=== PATIENT | female | born 1960 | race Caucasian/White ===

== ENCOUNTER → 2017-02-23 | Outpatient (CLI) | payer MEDICAID | LOC: FIMAGING 10:55 | PROVIDERS: ATTEND Internal Medicine Hematology & Oncology | DX: Z12.31 Encounter for screening mammogram for malignant neoplasm of breast (principal); Z85.3 Personal history of malignant neoplasm of breast; Z90.11 Acquired absence of right breast and nipple | CPT/HCPCS: G0202-52 ==

== ENCOUNTER → 2018-03-01 | Outpatient (CLI) | payer MEDICAID | LOC: FIMAGING 10:10 | PROVIDERS: ATTEND Internal Medicine Hematology & Oncology | DX: Z12.31 Encounter for screening mammogram for malignant neoplasm of breast (principal); Z85.3 Personal history of malignant neoplasm of breast; Z90.11 Acquired absence of right breast and nipple ==

== ENCOUNTER → 2018-03-11 | Outpatient (CLI) | payer MEDICAID | LOC: FIMAGING 14:15 | PROVIDERS: ATTEND Nurse Practitioner | DX: R92.8 Other abnormal and inconclusive findings on diagnostic imaging of breast (principal) ==

== ENCOUNTER 2018-03-14 08:09 | Emergency (ER) | payer MEDICAID ==
[2018-03-14] MEDS ORDERED: MECLIZINE HCL 25 MG TAB PO ONE (08:39)
--- NOTE | 2018-03-14 08:41 | EDPHY ---
H & P Stated Complaint: PT. states awoke this am with the "spins",dizzy. Denies CP,SOB , Time Seen by Provider: 03/14/18 08:29 HPI/ROS: CHIEF COMPLAINT: Vertigo HISTORY OF PRESENT ILLNESS: Patient is a 57-year-old female who has felt an intense spinning sensation since she got out of bed this morning. This has never happened to her before. She does not have any focal weakness or numbness. It tends to settle down and she lies still. It is worsened by movement. She states that she feels dizzy when she tries to walk. She has not vomited. No chest pain or shortness of breath. REVIEW OF SYSTEMS: Constitutional: denies: chills, fever, recent illness, recent injury EENTM: denies: blurred vision, double vision, nose congestion Respiratory: denies: cough, shortness of breath Cardiac: denies: chest pain, irregular heart rate, lightheadedness, palpitations Gastrointestinal/Abdominal: denies: abdominal pain, diarrhea, nausea, vomiting, blood streaked stools Genitourinary: denies: dysuria, frequency, hematuria, pain Musculoskeletal: denies: joint pain, muscle pain Skin: denies: lesions, rash, jaundice, bruising Neurological: See HPI denies: headache, numbness, paresthesia, tingling, weakness Hematologic/Lymphatic: denies: blood clots, easy bleeding, easy bruising Immunologic/allergic: denies: HIV/AIDS, transplant EXAM: GENERAL: Well-appearing, well-nourished and in no acute distress. HEAD: Atraumatic, normocephalic. EYES: Mild nystagmus with fast component to the right, Pupils equal round and reactive to light, extraocular movements intact, sclera anicteric, conjunctiva are normal. ENT: TMs normal, nares patent, oropharynx clear without exudates. Moist mucous membranes. NECK: Normal range of motion, supple without lymphadenopathy or JVD. LUNGS: Breath sounds clear to auscultation bilaterally and equal. No wheezes rales or rhonchi. HEART: Regular rate and rhythm without murmurs, rubs or gallops. ABDOMEN: Soft, nontender, normoactive bowel sounds. No guarding, no rebound. No masses appreciated. BACK: No CVA tenderness, no spinal tenderness, step-offs or deformities EXTREMITIES: Normal range of motion, no pitting or edema. No clubbing or cyanosis. NEUROLOGICAL: Cranial nerves II through XII grossly intact. Normal speech, normal gait. 5/5 strength, normal movement in all extremities, normal sensation , normal cerebellar exam, NIH score 0. PSYCH: Normal mood, normal affect. SKIN: Warm, dry, normal turgor, no visible rashes or lesions. Source: Patient Exam Limitations: No limitations - Personal History Current Tetanus Diphtheria and Acellular Pertussis (TDAP): Unsure Tetanus Vaccine Date: UNSURE IF WITHIN 10 Y - Medical/Surgical History Hx Asthma: No Hx Chronic Respiratory Disease: No Hx Diabetes: No Hx Cardiac Disease: No Hx Renal Disease: No Hx Cirrhosis: No Hx Alcoholism: No Hx HIV/AIDS: No Hx Splenectomy or Spleen Trauma: No Other PMH: right mastectomy,rt. Breast reconstruction, melanoma at 30 y/o, GERD - Family History Significant Family History: No pertinent family hx - Social History Smoking Status: Former smoker Alcohol Use: Sober Drug Use: None Constitutional: Initial Vital Signs Temperature (C) 36.4 C 03/14/18 08:17 Heart Rate 86 03/14/18 08:17 Respiratory Rate 16 03/14/18 08:17 Blood Pressure 152/100 H 03/14/18 08:17 O2 Sat (%) 97 03/14/18 08:17 O2 Delivery Mode Room Air Allergies/Adverse Reactions: No Known Allergies Allergy (Unverified 09/22/15 11:41) Home Medications: Medication Instructions Recorded Herbals/Supplements -Info Only 1 each PO AD 02/04/13 Multivitamins [Tab-A-[place]] 1 each PO DAILY 02/04/13 [place]-3 Fatty Acids/Fish Oil [Fish 2 each PO DAILY 02/04/13 Oil 1,000 mg Softgel] Arimidex 1 mg (RX) 09/22/15 Meclizine HCl [Meclizine HCl 25 mg 25 mg PO BID #14 tab 03/14/18 (RX,OTC)] Omeprazole 03/14/18 Ondansetron Odt [Zofran Odt 4 mg 4 mg PO Q4 PRN #20 tab 03/14/18 (RX)] Medical Decision Making ED Course/Re-evaluation: 10:20 p.m. we perform the David maneuver. The patient is feeling somewhat better but still slightly dizzy. I will discharge her with Zofran and meclizine and have her follow up with ENT. She is happy with this plan. Her is here to drive. We discussed symptoms to watch for. She does not have any focal neurologic deficits or weakness. Differential Diagnosis: Partial list of the Differential diagnosis considered include but were not limited to; vertigo, benign positional vertigo, vestibular neuritis and although unlikely based on the history and physical exam, I also considered central vertigo, ischemia, tumor, stroke, cardiac disease. I discussed these differential diagnoses and the plan with the patient as well as the usual and expected course. The patient understands that the diagnosis is provisional and that in medicine we are not always correct and that further workup is often warranted. Usual and customary warnings were given. All of the patient's questions were answered. The patient was instructed to return to the emergency department should the symptoms at all worsen or return, otherwise to followup with the physician as we discussed. - Data Points Medications Given: Discontinued Medications Meclizine HCl (Meclizine Hcl) 50 mg PO EDNOW ONE Stop: 03/14/18 08:40 Last Admin: 03/14/18 08:51 Dose: 50 mg Ondansetron HCl (Zofran Odt) 4 mg PO EDNOW ONE Stop: 03/14/18 08:48 Last Admin: 03/14/18 08:50 Dose: 4 mg Departure - Departure Disposition: Home, Routine, Self-Care Clinical Impression: Benign paroxysmal positional vertigo Qualifiers: Laterality: right Qualified Code(s): H81.11 - Benign paroxysmal vertigo, right ear Condition: Fair Instructions: Meclizine (By mouth), Ondansetron (By mouth), Benign Paroxysmal Positional Vertigo (ED) Referrals: Ladi Peralta MD [Primary Care Provider] - As per Instructions Prescriptions: Meclizine HCl [Meclizine HCl 25 mg (RX,OTC)] 25 mg PO BID #14 tab Ondansetron Odt [Zofran Odt 4 mg (RX)] 4 mg PO Q4 PRN #20 tab PRN Reason: Nausea & Vomiting
[2018-03-14] MEDS ORDERED: ONDANSETRON DISINTEGRATING 4 MG TAB PO ONE (08:47)
[2018-03-14 10:30] VITALS: BP 162/97
== END 2018-03-14 10:28 | disposition home or self-care (01) ==
LOC: CED 08:09
DX: H81.11 Benign paroxysmal vertigo, right ear (principal); Z85.820 Personal history of malignant melanoma of skin; Z87.891 Personal history of nicotine dependence

== ENCOUNTER → 2018-04-09 | Day surgery (SDC) | payer MEDICAID ==
[~2018-04-09] MED LIST: BUPIVACAINE 0.5% 30 ML SDV ONE; LIDOCAINE 1% 300 MG/30 ML SDV ONE
== END | disposition home or self-care (01) ==
LOC: FIMAGING 07:25
PROVIDERS: ATTEND Internal Medicine Hematology & Oncology
PROC: 0HBU3ZX Excision of Left Breast, Percutaneous Approach, Diagnostic (ICD-10-PCS; principal; 2018-04-09)
PROC: BH01ZZZ Plain Radiography of Left Breast (ICD-10-PCS; principal; 2018-04-09)
DX: D24.2 Benign neoplasm of left breast (principal); Z85.3 Personal history of malignant neoplasm of breast; Z90.11 Acquired absence of right breast and nipple

== ENCOUNTER → 2018-08-09 | Outpatient (CLI) | payer MEDICAID | LOC: FIMAGING 10:31 | PROVIDERS: ATTEND Internal Medicine Hematology & Oncology | DX: Z13.820 Encounter for screening for osteoporosis (principal); M85.89 Other specified disorders of bone density and structure, multiple sites; Z78.0 Asymptomatic menopausal state ==

== ENCOUNTER → 2018-08-22 | Outpatient (CLI) | payer MEDICAID | LOC: FIMAGING 13:39 | PROVIDERS: ATTEND Internal Medicine Hematology & Oncology | DX: N64.89 Other specified disorders of breast (principal) ==

== ENCOUNTER → 2018-10-18 | Outpatient (CLI) | payer MEDICAID | LOC: FIMAGING 13:33 | PROVIDERS: ATTEND Internal Medicine Hematology & Oncology | DX: Z09 Encounter for follow-up examination after completed treatment for conditions other than malignant neoplasm (principal); Z85.3 Personal history of malignant neoplasm of breast; Z90.11 Acquired absence of right breast and nipple ==

== ENCOUNTER → 2018-11-22 | Outpatient (CLI) | payer MEDICAID ==
[~2018-11-22] MED LIST changes: -BUPIVACAINE 0.5% 30 ML SDV ONE; +GADOBUTROL 10 ML VIAL IVP ONE; -LIDOCAINE 1% 300 MG/30 ML SDV ONE
== END ==
LOC: FIMAGING 09:36
PROVIDERS: ATTEND Internal Medicine Hematology & Oncology
DX: Z12.39 Encounter for other screening for malignant neoplasm of breast (principal); Z85.3 Personal history of malignant neoplasm of breast; Z80.3 Family history of malignant neoplasm of breast; Z15.01 Genetic susceptibility to malignant neoplasm of breast; Z17.0 Estrogen receptor positive status [ER+]
CPT/HCPCS: A9585; C8908